=== PATIENT | male | born 1955 | race African-American/Black ===

== ENCOUNTER 2017-01-29 08:56 | Day surgery (SDC) | payer OTHER ==
[~2017-01-29] VITALS: Ht 171.4 cm; Wt 68.0 kg
[~2017-01-29 08:56] MED LIST: HYDROmorphone 2 MG/ML VIAL IV PRN; IV RINGERS,LACTATED 1000ML 1,000 ML IV SCH; LIDOCAINE 1% PF 2 ML VIAL. ID PRN; MORPHINE SULFATE 2 MG/ML DISP.SYRIN. IV PRN; ONDANSETRON PF 4 MG/2 ML VIAL. IV PRN; PROCHLORPERAZINE 10 MG/2 ML VIAL. IV PRN; fentaNYL PF VIAL 100 MCG/2 ML VIAL IV PRN
[2017-01-29] MEDS ORDERED: LIDOCAINE 2% PF Vial for OR 5 ML VIAL. ONE (09:22)
[2017-01-29] MEDS ORDERED: fentaNYL PF VIAL 100 MCG/2 ML VIAL ONE (09:22)
[2017-01-29] MEDS ORDERED: PROPOFOL 20 ML IV ONE (09:22)
[2017-01-29] MEDS ORDERED: DESFLURANE 31 TO 60 MINUTES IH ONE (11:33)
[2017-01-29] MEDS ORDERED: DEXAMETHASONE SOD PHOS 20 MG/5 ML VIAL. ONE (11:33)
[2017-01-29] MEDS ORDERED: BUPIVACAINE-EPI 0.25%-1:200000 MPF 30 ML VIAL. INJ ONE (11:47)
[2017-01-29] MEDS ORDERED: ONDANSETRON PF 4 MG/2 ML VIAL. ONE (11:48)
[2017-01-29] MEDS ORDERED: GLYCOPYRROLATE 1 MG/5 ML VIAL. ONE (11:48)
[2017-01-29] MEDS ORDERED: ePHEDrine PF IN SALINE 50 MG/5 ML DISP.SYRIN IV ONE (11:51)
[2017-01-29] MEDS ORDERED: VENTOLIN HFA18 GM INH (12:29)
[2017-01-29] MEDS ORDERED: LISI-334 PO (12:29)
[2017-01-29] MEDS ORDERED: ACET500T68 PO (12:29)
[2017-01-29] MEDS ORDERED: KETOROLAC 30 MG/ML INJ FOR OR. INJ ONE (12:46)
--- NOTE | 2017-01-29 12:57 | PDOC4 ---
Operative Note Operative Note Date: 01/29/2017 Preoperative diagnosis: Recurrent left inguinal hernia with incarceration Postoperative diagnosis: Same Procedure: Robotic-assisted laparoscopic left inguinal hernia repair with mesh Surgeon: Keith Specimen: None Dictation: Patient is a 61-year-old male who's had bilateral inguinal hernia repairs in the past he has recurrent of the left with a fairly large incarceration of omentum. The procedure of robotic-assisted laparoscopic left inguinal hernia repair was explained to the patient detail was benefits were also discussed including bleeding infection injury to intra-abdominal contents possibly necessitating further or open operations alternatives to this procedure also discussed with the patient seemed understanding gave both verbal and written consent had procedure performed. Patient was taken to the operating room placed in the supine position general anesthesia was initiated once patient was asleep and intubated is placed in low lithotomy and his abdomen was prepped and draped usual sterile fashion using ChloraPrep. An area just above the umbilicus was injected with quarter percent Marcaine with epinephrine incision was made lead blade scalpel varies needle was placed within the abdomen and a pneumoperitoneum was achieved. A 8 mm da Lilian port was placed and the camera was placed within the abdomen abdomen was inspected no other at maladies noted was noted that the right inguinal hernia had a large amount of omentum incarcerated within the hernia defect. A 8 mm da Lilian port was placed in the left mid abdomen as well as one in the right mid abdomen under direct visualization the da Lilian robot was brought in and docked all ports. At this point surgeon went to the robotic console using grasper and Endo Kilo the omentum was reduced from the hernia defect. A window in the peritoneum was propagated inferiorly across to the hernia defect. This point Pro database engineer mesh was then placed within the abdomen this was placed over the hernia defect and the peritoneum was then closed over the mesh with a running V lock suture. The pneumoperitoneum was reduced the da Lilian robot was undocked and all ports removed the skin was closed at all port sites 4 subcuticular Monocryl Mastisol Steri-Strips 4 x 4's Medipore tape were applied as dressings. Patient was awakened and extubated in the operating room taken recovery in stable condition all sponge instrument needle counts listed as correct. Estimated blood loss 10 mL TUCKER REED MD Jan 29, 2017 12:57
--- NOTE | 2017-01-29 12:58 | DISCH ---
DISCHARGE INSTRUCTIONS Condition on Discharge Condition on Discharge: Stable Activity After Discharge Activity Instructions for Disc: Avoid exertion Other activity instructions: No lifting >20lbs for 2 weeks Lifting Instructions after Dis: No heavy lifting Diet after Discharge Diet after Discharge: Regular Wound Incision Care Other wound/incision instructi: May shower in 24 hours Contacting the after DC Call your doctor for: If your condition worsens Follow-Up Follow up with: Dr Reed in 2 weeks TUCKER REED MD Jan 29, 2017 12:58
[2017-01-29] MEDS: fentaNYL PF VIAL 100 MCG/2 ML VIAL IV PRN ×2 (13:15→13:42)
[2017-01-29 13:53] VITALS: BP 156/87
== END 2017-01-29 14:19 | disposition home or self-care (01) ==
LOC: SURG 08:56 → EEVIPCON 11:00 → SURG 14:19
PROVIDERS: ATTEND Surgery
DX: K40.31 Unilateral inguinal hernia, with obstruction, without gangrene, recurrent (principal); I10 Essential (primary) hypertension; J45.909 Unspecified asthma, uncomplicated; F17.200 Nicotine dependence, unspecified, uncomplicated; Z91.013 Allergy to seafood
CPT/HCPCS: 49651; C1781; J0690; J1100; J1885; J2405; J2704; J3010; J3490; J7120; J0780; J2001